=== PATIENT | female | born 1975 | race Caucasian/White ===

== ENCOUNTER 2017-10-06 22:38 | Inpatient (IN) | payer OTHER ==
[~2017-10-06] VITALS: Ht 157.5 cm; Wt 78.1 kg
[2017-10-07 00:50] VITALS: Ht 157.5 cm; Wt 78.1 kg
[2017-10-07] MEDS ORDERED: TACR5CAP PO (02:14)
[2017-10-07] MEDS ORDERED: CHOL100062 PO (02:14)
[2017-10-07] MEDS ORDERED: CALC0.5C4 PO (02:14)
[2017-10-07] MEDS ORDERED: PRED5TAB PO (02:14)
[2017-10-07] MEDS ORDERED: ACET325T33 PO (02:14)
[2017-10-07] MEDS ORDERED: NIFE60TA7 PO (02:14)
[2017-10-07 02:29] VITALS: BP 125/86; RESP 16
[2017-10-07] MEDS: SOD CHLORIDE 0.9% 1,000 ML IV SCH (02:50)
[2017-10-07] MEDS: morphine 2 MG INJ IV PRN ×2 (04:33→09:05)
[2017-10-07 05:57] LABS: ABNORMAL IP MESSAGE 1; EOSINOPHILS % 0.1 % (0.0-7.0); HEMATOCRIT 28.7 % (37.0-47.0); HEMOGLOBIN 9.8 g/dl (12.0-16.0); LYMPHOCYTES # 0.6 10^3/ul (0.8-2.9); LYMPHOCYTES % 6.9 % (15.0-51.0); MEAN CORPUSCULAR HEMOGLOBIN 31.1 pg (29.0-33.0); MEAN CORPUSCULAR HGB CONC 34.1 g/dl (32.0-37.0); MEAN CORPUSCULAR VOLUME 91.1 fl (82.0-101.0); MEAN PLATELET VOLUME 10.6 fl (7.4-10.4); MONOCYTES % 0.4 % (0.0-11.0); NEUTROPHIL # 7.7 10^3/ul (1.6-7.5); PLATELET COUNT 210 10^3/UL (140-415); RED BLOOD COUNT 3.15 10^6/ul (4.20-5.40); RED CELL DISTRIBUTION WIDTH 12.9 % (11.5-14.5); WHITE BLOOD COUNT 8.4 10^3/ul (4.8-10.8)
[2017-10-07] MEDS ORDERED: ACETAMINOPHEN 325 MG TAB PO PRN ×3 (06:00→11:00)
[2017-10-07 06:24] LABS: CALCIUM 9.5 mg/dl (8.4-10.2); CREATININE 3.14 mg/dl (0.44-1.00); POTASSIUM 4.1 mmol/L (3.5-5.1)
[2017-10-07 06:34] LABS: POSITIVE DIFF @See below
[2017-10-07] MEDS: LEVOTHYROXINE 137 MCG TAB PO SCH (07:04)
[2017-10-07 07:59] VITALS: BP 140/92; RESP 18
[2017-10-07] MEDS: METOPROLOL 100 MG TAB PO SCH ×2 (08:00→21:42)
[2017-10-07] MEDS: NIFEdipine (XL) 60 MG TAB PO SCH (09:04)
[2017-10-07] MEDS: TACROLIMUS 1 MG CAP PO SCH ×2 (09:05→21:52)
[2017-10-07] MEDS: predniSONE 5 MG TAB PO SCH (09:05)
[2017-10-07] MEDS ORDERED: NACL 0.9% 3 ML SYG IV SCH (11:00)
[2017-10-07] MEDS ORDERED: MAGNESIUM HYDROXIDE 30ML CUP PO PRN (11:00)
[2017-10-07] MEDS ORDERED: DOCUSATE SODIUM 100 MG CAP PO PRN (11:00)
[2017-10-07] MEDS ORDERED: ONDANSETRON 4 MG INJ IV PRN (11:00)
[2017-10-07] MEDS ORDERED: BISACODYL (EC) 5 MG TAB PO PRN (11:00)
--- NOTE | 2017-10-07 11:50 | RADRPT ---
PROCEDURE: Renal US. CLINICAL INDICATION: History of renal transplant. TECHNIQUE: Multiple sonographic images of the transplant kidney in the right iliac fossa were obta ined. The images were reviewed on a PACS workstation. COMPARISON: No prior studies are available for comparison. FINDINGS: The right iliac fossa transplant kidney measures 8.2 x 5.7 x 6.8 cm. There is no renal mass. There is no hydronephrosis. There is no renal calculus. Renal parenchymal thickness and echogenicity is normal. The renal transplant perirenal region is normal with no fluid collection or mass. IMPRESSION: 1. Normal ultrasound of the right iliac fossa renal transplant. RPTAT: QQ .Manny Logan MD, MD Date Time Electronically viewed and signed by .Manny Logan MD, on 10/07/2017 11:50 .R/
[2017-10-07] MEDS: CHOLECALCIFEROL 1,000 UNIT TAB PO SCH (12:16)
[2017-10-07] MEDS: FERROUS SULFATE (EC) 325 MG TAB PO SCH ×2 (12:16→21:43)
[2017-10-07] MEDS: CALCITRIOL 0.25 MCG CAP PO SCH ×2 (12:16→21:43)
[2017-10-07] MEDS: CITRIC ACID/SODIUM CITRATE 15 ML CUP PO SCH ×2 (12:17→22:20)
[2017-10-07 13:46] VITALS: BP 138/100; RESP 18
--- NOTE | 2017-10-07 16:58 | RADRPT ---
PROCEDURE: Chest x-ray CLINICAL INDICATION: Shortness of breath TECHNIQUE: Chest 2 views COMPARISON: None FINDINGS: The heart is normal in size. The pulmonary vessels are normal in caliber. The lungs are clear. Th e costophrenic angles are sharp. The visualized bony thorax is unremarkable. IMPRESSION: No acute cardiopulmonary disease. RPTAT: HH .Daquan Galaviz MD, Date Time Electronically viewed and signed by .Daquan Galaviz MD, MD on 10/07/2017 16:58 .W/
[2017-10-07] MEDS: HYDROmorphONE 1 MG/ML SYG IV PRN ×2 (17:03→21:39)
--- NOTE | 2017-10-07 18:03 | QN ---
Documentation Comment [id number] DAVID NUÑEZ MD Oct 07, 2017 18:03
--- NOTE | 2017-10-07 20:22 | HP ---
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 The patient recently had a in the family and went to [facility] and was sick there. Denies any dysuria, hematuria, but she was not feeling good and came back and went to [facility]. Since patient is in this hospital, patient was transferred here. The patient's baseline creatinine running in the range of 3. The patient had ultrasound done here shows right iliac fossa transplant kidney 8.2 x 4.7 x 6.8 cm. The patient has a chest x-ray also ordered that shows no active cardiopulmonary disease. The patient is being admitted for further management complaining of abdominal pain, denies any diarrhea, hematemesis, melena. Complaining of weakness, nausea, tiredness. PAST MEDICAL HISTORY: Positive for kidney transplant more than 20 years ago. The patient has a history of hypertension. The patient has history of anemia. ALLERGY HISTORY: VANCOMYCIN. SOCIAL HISTORY: Negative. FAMILY HISTORY: Noncontributory. MEDICATION HISTORY: The patient is on at home: 1. Tylenol 2. Calcitriol. 3. Vitamin D3. 4. Nifedipine. 5. Prednisone. 6. Prograf. REVIEW OF SYSTEMS: HEENT: Unremarkable. RESPIRATORY: Unremarkable except short of breath. CARDIOVASCULAR: No chest pain, palpitation. ABDOMEN: Nausea, abdominal pain. No diarrhea, hematemesis, melena. EXTREMITIES: Unremarkable. CENTRAL NERVOUS SYSTEM: Unremarkable. PHYSICAL EXAMINATION: GENERAL: The patient is awake and alert. VITAL SIGNS: Pulse 94, blood pressure 130/100. HEAD: Atraumatic, normocephalic. Pupils equal, reactive to light. NECK: Supple. There is no JVD. LUNGS: Clear. CARDIOVASCULAR: S1, S2 are normal. ABDOMEN: Soft, nontender. Bowel sounds present. No palpable mass. Lower quadrant has transplant kidney. EXTREMITIES: No cyanosis, clubbing. Trace edema. CENTRAL NERVOUS SYSTEM: The patient is awake, alert, no focal deficit. LABORATORY DATA: As mentioned above. IMPRESSION: 1. The patient has worsening chronic kidney disease. 2. Metabolic acidosis. 3. Anemia. 4. Hypertension. 5. Hyperglycemia. PLAN: To obtain a urine creatinine and urine protein creatinine ratio, urine sodium, gentle IV fluid PPI, continue home medication. Orders were done. Dictated By: DAVID BETH/LUIS M Conf#: [id number] DID#: [id number] MTDD
[2017-10-07] MEDS ORDERED: CALCITRIOL 0.25 MCG CAP PO SCH (21:00)
[2017-10-07 21:03] VITALS: BP 128/93; RESP 18
--- NOTE | 2017-10-07 21:33 | CONS ---
DATE OF ADMISSION: 10/07/2017 DATE OF CONSULTATION: HISTORY OF PRESENT ILLNESS: A 42-year-old female with a renal transplant, comes to the hospital com plaining of epigastric pain. She is also nauseous and gets heartburn. No GI bleeding, no chest cecil n, no shortness of breath, no or ROLLWAY MAN problem. The patient was evaluated in the emergency room at [facility] and subsequently for insurance purpose transferred to this facility. There, th e blood tests were done. The liver function was within normal limits. Hematocrit was 33. Creatinin e was 3.39. Otherwise, BMP was grossly within normal limits. WBC was normal. The patient had a re nal ultrasound which was negative. I do not have the rest of the report available which is all sket nadia. ALLERGIES: VANCOMYCIN. PHYSICAL EXAMINATION: VITALS: Stable. GENERAL: The patient is alert, awake, not in distress. HEENT: Unremarkable. CARDIOVASCULAR: No murmur, gallop or click. LUNGS: Clear. ABDOMEN: Soft. Tenderness in the epigastric area. Bowel sounds good. No mass upper abdomen. EXTREMITIES: No edema. CENTRAL NERVOUS SYSTEM: Grossly within normal limits. MEDICATIONS: All of the patient's medications reviewed, including immunosuppressive medications. S he is on: 1. Prednisone. 2. Tacrolimus. IMPRESSION: 1. Accelerated hypertension. 2. Status post renal transplant, on immunosuppressive medication. 3. Anemia. 4. Renal failure. 5. Epigastric pain for the last 4 to 5 weeks associated with nausea. PLAN: At this point, continue present medications. Control or optimize the blood pressure. Will p roceed with EGD. If the patient had no abdominal ultrasound done, then will order one to make sure she does not have a gallstone. Discussed with the patient and has agreed. Dictated By: SEDRICK ANN/LUIS M Conf#: [id number] DID#: [id number] CC: DAVID NUÑEZ MD;*EndCC*
[2017-10-08] VITALS (13 sets, daily range): BP systolic 82–144; BP diastolic 58–97; PULSE 78–88; RESP 14–26
[2017-10-08] MEDS: SOD CHLORIDE 0.9% 1,000 ML IV SCH ×2 (02:00→05:59)
[2017-10-08] MEDS: LEVOTHYROXINE 137 MCG TAB PO SCH (04:37)
[2017-10-08] MEDS ORDERED: PANTOPRAZOLE 40 MG INJ ONE (04:39)
[2017-10-08] MEDS: PANTOPRAZOLE 40 MG INJ IV SCH (05:09)
[2017-10-08 06:42] LABS: ALBUMIN 2.9 g/dl (3.3-4.9); ALBUMIN/GLOBULIN RATIO 0.85; BILIRUBIN,INDIRECT 0.1 mg/dl (0-1.1); BILIRUBIN,TOTAL 0.1 mg/dl (0.2-1.3); CALCIUM 9.2 mg/dl (8.4-10.2); CREATININE 2.92 mg/dl (0.44-1.00); TOTAL PROTEIN 6.3 g/dl (6.1-8.1)
--- NOTE | 2017-10-08 07:24 | RADRPT ---
PROCEDURE: US Abdomen. CLINICAL INDICATION: Abdominal pain TECHNIQUE: Multiple real-time images were acquired of the patient's abdomen and retroperitoneum ut ilizing a high resolution transducer. COMPARISON: None FINDINGS: Visualized portions of the pancreatic head and proximal body are unremarkable. The liver is normal in size and contour without evidence of intrapelvic biliary dilatation. There is a 4 mm nonshadowing echogenic focus in the gallbladder that could represent a polyp. There is no evidence of cholelithiasis, pericholecystic fluid or gallbladder wall thickening. The technol ogist reports a negative sonographic Martínez's sign. The common bile duct measures 4.7 mm in morelia l dimension. No free fluid is identified. The transplant kidney is seen on the right. This transplant kidney measures 9.2 cm in length. There is no evidence of hydronephrosis. The proximal aorta measures 1.9 cm in transverse dimension. The mid aorta measures 1.3 cm in transv erse dimension. The spleen is normal in size measuring 8.8 cm. IMPRESSION: 1. 4 mm nonshadowing echogenic focus in the gallbladder that could represent a polyp. The gallbladd er is otherwise sonographically unremarkable. 2. Transplanted kidney seen on the right measuring 9.2 cm in length. There is no evidence of hydron ephrosis. RPTAT:AAJJ Physician Tylor Date Time Electronically viewed and signed by Physician Tylor on 10/08/2017 07:23 /
[2017-10-08 07:55] LABS: BASOPHILS % 0.1 % (0.0-2.0); EOSINOPHILS # 0.1 10^3/ul (0.0-0.5); EOSINOPHILS % 0.4 % (0.0-7.0); HEMATOCRIT 27.3 % (37.0-47.0); HEMOGLOBIN 9.3 g/dl (12.0-16.0); LYMPHOCYTES # 1.4 10^3/ul (0.8-2.9); LYMPHOCYTES % 10.2 % (15.0-51.0); MEAN CORPUSCULAR HEMOGLOBIN 31.4 pg (29.0-33.0); MEAN CORPUSCULAR HGB CONC 34.1 g/dl (32.0-37.0); MEAN CORPUSCULAR VOLUME 92.2 fl (82.0-101.0); MEAN PLATELET VOLUME 10.6 fl (7.4-10.4); MONOCYTE # 0.9 10^3/ul (0.3-0.9); MONOCYTES % 6.7 % (0.0-11.0); NEUTROPHIL # 11.2 10^3/ul (1.6-7.5); NEUTROPHILS % 82.2 % (39.0-77.0); PLATELET COUNT 199 10^3/UL (140-415); RED BLOOD COUNT 2.96 10^6/ul (4.20-5.40); WHITE BLOOD COUNT 13.6 10^3/ul (4.8-10.8)
[2017-10-08] MEDS: METOPROLOL 100 MG TAB PO SCH ×2 (08:00→22:14)
[2017-10-08] MEDS ORDERED: predniSONE 5 MG TAB PO SCH (09:00)
[2017-10-08] MEDS ORDERED: INFLUENZA VIRUS VACCINE 0.5 ML (DISPENSING) IM* ONE (09:00)
[2017-10-08] MEDS ORDERED: NIFEdipine (XL) 60 MG TAB PO SCH (09:00)
[2017-10-08] MEDS ORDERED: CHOLECALCIFEROL 1,000 UNIT TAB PO SCH (09:00)
[2017-10-08] MEDS: CITRIC ACID/SODIUM CITRATE 15 ML CUP PO SCH ×3 (09:00→22:33)
[2017-10-08] MEDS ORDERED: TACROLIMUS 7 MG PO SCH (09:00)
[2017-10-08] MEDS ORDERED: PROPOFOL 20 ML ONE (12:25)
[2017-10-08] MEDS ORDERED: LIDOCAINE 2% (SDV) 5 ML INJ ONE (12:25)
--- NOTE | 2017-10-08 12:38 | OPPN ---
Date/Time of Note Date/Time of Note DATE: 10/08/17 TIME: 12:37 Proc Note GI Procedure Date 10/08/17 Indication: diagnostic Pre-procedure Diagnosis Epigastric pain Post-procedure Diagnosis 1. Gastroparesis 2. Gastritis Procedure Performed: Endoscopy Surgeon see signature line Industrial Maintenance Mechanic none Anesthesia Type: MAC Tourniquet Time none EBL none Transfusion required none Biopsy 1: Gastric Grafts/Implants none Tubes/Drains none Complication(s) none Disposition: PACU Procedure Description Dictated SEDRICK GRUBBS MD Oct 08, 2017 12:38
--- NOTE | 2017-10-08 13:07 | GILP ---
DATE OF PROCEDURE: PROCEDURE PERFORMED: EGD with biopsy. INDICATION: A 42-year-old female undergoing this procedure for persistent epigastric pain for the l ast 4 to 5 weeks associated with nausea. The purpose is to evaluate upper GI tract to rule out pept ic ulcer disease. INFORMED CONSENT: The risk of the procedure, related and unrelated complications, anesthetic risks, alternatives discussed and informed consent was obtained. DESCRIPTION OF PROCEDURE: The patient was brought to the GI lab, sedated by anesthesiologist. Afte r obtaining sedation, scope was passed with much ease into esophagus which was grossly within normal limits. No varicose vein identified. Z-line was at 35 cm. Stomach mucosa revealed gastroparesis with undigested food particle in the fundal area. Though the gastritis more so in the antrum, 3 bio psies obtained to rule out H. pylori infection. Duodenum, first and second part was within normal l imits. Retroversion done. Again gastroparesis confirmed. Scope was straightened out and removed w ith good patient tolerance. IMPRESSION 1. Gastroparesis. 2. Gastritis. 3. Normal esophagus. 4. No varicose vein identified. 5. Normal duodenum. PLAN: Start the patient on Reglan. Continue PPI pending H. pylori test results. Dictated By: SEDRICK GRUBBS MD PJ/NTS Conf#: [id number] DID#: [id number] CC: DAVID NUÑEZ MD;*End*
--- NOTE | 2017-10-08 13:56 | PN ---
Date/Time of Note Date/Time of Note DATE: 10/08/17 TIME: 13:54 Assessment/Plan VTE Prophylaxis VTE Prophylaxis Intervention: ambulation Lines/Catheters IV [facility]from [facility]): Peripheral IV Urinary Cath still in place: No Assessment/Plan Chief Complaint/Hosp Course 1. chronic kidney disease.Transplanted kidney on the right . 2. Metabolic acidosis. 3. Anemia. 4. Hypertension. 5. Hyperglycemia. 6. S/p EGD 7. gastroparesis 8. SIRS Problems: Assessment/Plan 1. continue IV fluids 2. Continue medications 3. UA is collected 4. dr weir for SIRS Subjective 24 Hr Interval Summary Constitutional: improved, no complaints Gastrointestinal: pain Musculoskeletal: no complaints Skin: no complaints Neurologic: no complaints Exam/Review of Systems Vital Signs Vitals Vital Signs Date Time Temp Pulse Resp B/P Pulse Ox O2 Delivery O2 Flow Rate FiO2 10/08/17 12:50 99.1 88 14 126/88 100 Mask 10.0 Intake and Output 10/07/17 10/07/17 10/08/17 15:00 23:00 07:00 Intake Total 500 ml 1360 ml Output Total 1000 ml Balance -500 ml 1360 ml Exam Constitutional: alert, oriented Respiratory: clear to auscultation Cardiovascular: regular rate and rhythm Gastrointestinal: soft Results Result Diagram: 10/08/17 0505 10/08/17 0505 Results 24 hrs Laboratory Tests Test 10/08/17 05:05 White Blood Count 13.6 #H Red Blood Count 2.96 L Hemoglobin 9.3 L Hematocrit 27.3 L Mean Corpuscular Volume 92.2 Mean Corpuscular Hemoglobin 31.4 Mean Corpuscular Hemoglobin Concent 34.1 Red Cell Distribution Width 13.0 Platelet Count 199 Mean Platelet Volume 10.6 H Neutrophils % 82.2 H Lymphocytes % 10.2 L Monocytes % 6.7 Eosinophils % 0.4 Basophils % 0.1 Nucleated Red Blood Cells % 0.0 Neutrophils # 11.2 H Lymphocytes # 1.4 Monocytes # 0.9 Eosinophils # 0.1 Basophils # 0.0 Nucleated Red Blood Cells # 0.0 Sodium Level 141 Potassium Level 4.0 Chloride Level 111 H Carbon Dioxide Level 22 Anion Gap 12 Blood Urea Nitrogen 43 H Creatinine 2.92 H Glucose Level 102 # Hemoglobin A1c 5.8 Calcium Level 9.2 Phosphorus Level 4.2 Total Bilirubin 0.1 L Direct Bilirubin 0.00 Indirect Bilirubin 0.1 Aspartate Amino Transf (AST/SGOT) 17 Alanine Aminotransferase (ALT/SGPT) 35 Alkaline Phosphatase 39 L Total Protein 6.3 Albumin 2.9 L Globulin 3.40 H Albumin/Globulin Ratio 0.85 Medications Medications Current Medications Sodium Chloride (NS) 1,000 ml @ 40 mls/hr Q24H IV Last administered on 05:59; Admin Dose 40 MLS/HR; Start 10/07/17 at 02:00 Tacrolimus (Prograf) 6 mg DAILY@2229 PO Last administered on 10/07/17 21:52; Admin Dose 6 MG; Start 10/07/17 at 22:30 Ferrous Sulfate (Ferrous Sulfate (Ec)) 325 mg BID@ PO Last administered on 10/07/17 21:43; Admin Dose 325 MG; Start 10/07/17 at 12:00 Hydralazine HCl (Apresoline) 10 mg TID@ PO Last administered on 21:45; Admin Dose 10 MG; Start 10/07/17 at 08:00 Levothyroxine Sodium (Synthroid) 137 mcg DAILY@07 PO Last administered on 07:04; Admin Dose 137 MCG; Start 10/07/17 at 07:00 Metoprolol Tartrate (Lopressor) 100 mg BID@ PO Last administered on 10/07 21:42; Admin Dose 100 MG; Start 10/07/17 at 08:00 Acetaminophen (Tylenol Tab) 650 mg Q4H PRN PO PAIN AND OR ELEVATED TEMP; Start 10/07/17 at 06:00 Calcitriol (Rocaltrol) 0.5 mcg BID@ PO Last administered on 10/07/17 21 :43; Admin Dose 0.5 MCG; Start 10/07/17 at 12:00 Cholecalciferol (Vitamin D) 1,000 unit DAILY@12 PO Last administered on 12:16; Admin Dose 1,000 UNIT; Start 10/07/17 at 12:00 Nifedipine (Procardia Xl) 60 mg DAILY@08 PO Last administered on 10/07/17 09: 04; Admin Dose 60 MG; Start 10/07/17 at 08:00 Prednisone (Prednisone) 5 mg DAILY@08 PO Last administered on 10/07/17 09:05; Admin Dose 5 MG; Start 10/07/17 at 08:00 Tacrolimus (Prograf) 7 mg DAILY@08 PO Last administered on 10/07/17 09:05; Admin Dose 7 MG; Start 10/07/17 at 08:00 Acetaminophen (Tylenol Tab) 650 mg Q4H PRN PO MILD PAIN LEVEL 1-3; Start at 11:00 Ondansetron HCl (Zofran Inj) 4 mg Q6H PRN IV NAUSEA AND/OR VOMITING; Start 10/07/17 at 11:00 Acetaminophen (Tylenol Tab) 650 mg Q6H PRN PO PAIN LEVEL 1-3 OR FEVER; Start 10/07/17 at 11:00 Docusate Sodium (Colace) 100 mg Q12H PRN PO CONSTIPATION Last administered on 10/07/17 21:40; Admin Dose 100 MG; Start 10/07/17 at 11:00 Magnesium Hydroxide (Milk Of Mag) 30 ml DAILY PRN PO CONSTIPATION; Start at 11:00 Bisacodyl (Dulcolax) 5 mg DAILY PRN PO CONSTIPATION; Start 10/07/17 at 11:00 Citric Acid/ Sodium Citrate (Bicitra) 30 ml TID PO Last administered on 22:20; Admin Dose 30 ML; Start 10/07/17 at 13:00 Hydromorphone HCl (Dilaudid) 1 mg Q4H PRN IV PAIN LEVEL 6-10 Last administered on 10/07/17 21:39; Admin Dose 1 MG; Start 10/07/17 at 15:00 Pantoprazole (Protonix Iv) 40 mg DAILY@06 IV Last administered on 10/08/17 05: 09; Admin Dose 40 MG; Start 10/08/17 at 06:00 Metoclopramide HCl (Reglan) 5 mg Q6 IV ; Start 10/08/17 at 13:00 KIMI MORALES Oct 08, 2017 13:56
[2017-10-08] MEDS: NIFEdipine (XL) 60 MG TAB PO SCH (14:04)
[2017-10-08] MEDS: predniSONE 5 MG TAB PO SCH (14:05)
[2017-10-08] MEDS: CHOLECALCIFEROL 1,000 UNIT TAB PO SCH (14:05)
[2017-10-08] MEDS: FERROUS SULFATE (EC) 325 MG TAB PO SCH ×2 (14:05→22:13)
[2017-10-08] MEDS: CALCITRIOL 0.25 MCG CAP PO SCH ×2 (14:05→22:14)
[2017-10-08] MEDS: TACROLIMUS 1 MG CAP PO SCH ×2 (14:06→22:13)
[2017-10-08] MEDS: HYDROmorphONE 1 MG/ML SYG IV PRN ×2 (14:07→21:07)
[2017-10-08] MEDS: METOCLOPRAMIDE 10 MG INJ IV SCH ×2 (14:41→18:11)
[2017-10-08 17:46] LABS: PTH CALCIUM 9.5 mg/dL (8.6-10.2)
[2017-10-09] MEDS: METOCLOPRAMIDE 10 MG INJ IV SCH ×4 (00:54→17:29)
[2017-10-09 02:00] VITALS: BP 123/81; RESP 20
[2017-10-09] MEDS: PANTOPRAZOLE 40 MG INJ IV SCH (05:38)
[2017-10-09 06:30] LABS: BASOPHILS % 0.1 % (0.0-2.0); EOSINOPHILS # 0.2 10^3/ul (0.0-0.5); EOSINOPHILS % 1.8 % (0.0-7.0); HEMATOCRIT 30.7 % (37.0-47.0); HEMOGLOBIN 10.3 g/dl (12.0-16.0); LYMPHOCYTES # 1.6 10^3/ul (0.8-2.9); LYMPHOCYTES % 15.4 % (15.0-51.0); MEAN CORPUSCULAR HGB CONC 33.6 g/dl (32.0-37.0); MEAN CORPUSCULAR VOLUME 92.5 fl (82.0-101.0); MEAN PLATELET VOLUME 10.3 fl (7.4-10.4); MONOCYTE # 0.6 10^3/ul (0.3-0.9); MONOCYTES % 6.3 % (0.0-11.0); NEUTROPHIL # 7.7 10^3/ul (1.6-7.5); PLATELET COUNT 205 10^3/UL (140-415); RED BLOOD COUNT 3.32 10^6/ul (4.20-5.40); RED CELL DISTRIBUTION WIDTH 12.8 % (11.5-14.5); WHITE BLOOD COUNT 10.1 10^3/ul (4.8-10.8)
[2017-10-09] MEDS: LEVOTHYROXINE 137 MCG TAB PO SCH (06:38)
[2017-10-09 07:00] LABS: CALCIUM 9.1 mg/dl (8.4-10.2); CREATININE 2.64 mg/dl (0.44-1.00)
[2017-10-09 07:47] VITALS: BP 108/70; RESP 18
[2017-10-09 08:09] LABS: PROTEIN/CREAT RATIO 0.52 RATIO
[2017-10-09] MEDS: CITRIC ACID/SODIUM CITRATE 15 ML CUP PO SCH ×2 (08:24→12:31)
[2017-10-09] MEDS: NIFEdipine (XL) 60 MG TAB PO SCH (08:27)
[2017-10-09] MEDS: METOPROLOL 100 MG TAB PO SCH (08:27)
[2017-10-09] MEDS: predniSONE 5 MG TAB PO SCH (08:28)
[2017-10-09] MEDS: TACROLIMUS 1 MG CAP PO SCH (08:29)
[2017-10-09] MEDS: CALCITRIOL 0.25 MCG CAP PO SCH (12:30)
[2017-10-09] MEDS: CHOLECALCIFEROL 1,000 UNIT TAB PO SCH (12:30)
[2017-10-09] MEDS: FERROUS SULFATE (EC) 325 MG TAB PO SCH (12:30)
--- NOTE | 2017-10-09 13:06 | PN ---
Date/Time of Note Date/Time of Note DATE: 10/09/17 TIME: 13:05 Assessment/Plan VTE Prophylaxis VTE Prophylaxis Intervention: ambulation Lines/Catheters [facility] Peripheral IV Urinary Cath still in place: No Assessment/Plan Chief Complaint/Hosp Course 1. chronic kidney disease.Transplanted kidney on the right . 2. Metabolic acidosis. 3. Anemia. 4. Hypertension. 5. Hyperglycemia. 6. S/p EGD 7. gastroparesis 8. SIRS better Problems: Assessment/Plan 1. Possible d/c if ok with dr Buckner Subjective 24 Hr Interval Summary Constitutional: improved, no complaints Exam/Review of Systems Vital Signs Vitals Vital Signs Date Time Temp Pulse Resp B/P Pulse Ox O2 Delivery O2 Flow Rate FiO2 10/09/17 07:47 98.8 89 18 108/70 95 10/08/17 13:46 Room Air 10/08/17 12:59 10.0 Intake and Output 10/08/17 10/08/17 10/09/17 15:00 23:00 07:00 Intake Total 860 ml 880 ml Balance 860 ml 880 ml Exam Constitutional: alert, oriented Neck: supple Respiratory: clear to auscultation Genitourinary - Female: CVA tenderness (neg) Musculoskeletal: nl extremities to inspection Results Result Diagram: 10/09/17 0538 10/09/17 0538 Results 24 hrs Laboratory Tests Test 10/08/17 23:40 10/09/17 05:38 Urine Random Creatinine 62.83 Urine Random Sodium 103 H Urine Protein/Creatinine Ratio 0.52 Urine Total Protein 33.0 H Urine Test NEGATIVE White Blood Count 10.1 # Red Blood Count 3.32 L Hemoglobin 10.3 L Hematocrit 30.7 L Mean Corpuscular Volume 92.5 Mean Corpuscular Hemoglobin 31.0 Mean Corpuscular Hemoglobin Concent 33.6 Red Cell Distribution Width 12.8 Platelet Count 205 Mean Platelet Volume 10.3 Neutrophils % 76.0 Lymphocytes % 15.4 Monocytes % 6.3 Eosinophils % 1.8 Basophils % 0.1 Nucleated Red Blood Cells % 0.0 Neutrophils # 7.7 H Lymphocytes # 1.6 Monocytes # 0.6 Eosinophils # 0.2 Basophils # 0.0 Nucleated Red Blood Cells # 0.0 Sodium Level 140 Potassium Level 4.0 Chloride Level 109 Carbon Dioxide Level 24 Anion Gap 11 Blood Urea Nitrogen 38 H Creatinine 2.64 H Glucose Level 94 Calcium Level 9.1 Medications Medications Current Medications Sodium Chloride (NS) 1,000 ml @ 40 mls/hr Q24H IV Last administered on 05:59; Admin Dose 40 MLS/HR; Start 10/07/17 at 02:00 Tacrolimus (Prograf) 6 mg DAILY@0 PO Last administered on 10/08/17 22:13; Admin Dose 6 MG; Start 10/07/17 at 22:30 Ferrous Sulfate (Ferrous Sulfate (Ec)) 325 mg BID@ PO Last administered on 10/09/17 12:30; Admin Dose 325 MG; Start 10/07/17 at 12:00 Hydralazine HCl (Apresoline) 10 mg TID@ PO Last administered on 12:31; Admin Dose 10 MG; Start 10/07/17 at 08:00 Levothyroxine Sodium (Synthroid) 137 mcg DAILY@ PO Last administered on 06:38; Admin Dose 137 MCG; Start 10/07/17 at 07:00 Metoprolol Tartrate (Lopressor) 100 mg BID@ PO Last administered on 10/09 08:27; Admin Dose 100 MG; Start 10/07/17 at 08:00 Calcitriol (Rocaltrol) 0.5 mcg BID@ PO Last administered on 10/09/17 12 :30; Admin Dose 0.5 MCG; Start 10/07/17 at 12:00 Cholecalciferol (Vitamin D) 1,000 unit DAILY@12 PO Last administered on 12:30; Admin Dose 1,000 UNIT; Start 10/07/17 at 12:00 Nifedipine (Procardia Xl) 60 mg DAILY@08 PO Last administered on 10/09/17 08: 27; Admin Dose 60 MG; Start 10/07/17 at 08:00 Prednisone (Prednisone) 5 mg DAILY@08 PO Last administered on 10/09/17 08:28; Admin Dose 5 MG; Start 10/07/17 at 08:00 Tacrolimus (Prograf) 7 mg DAILY@08 PO Last administered on 10/09/17 08:29; Admin Dose 7 MG; Start 10/07/17 at 08:00 Ondansetron HCl (Zofran Inj) 4 mg Q6H PRN IV NAUSEA AND/OR VOMITING; Start 10/07/17 at 11:00 Acetaminophen (Tylenol Tab) 650 mg Q6H PRN PO PAIN LEVEL 1-3 OR FEVER; Start 10/07/17 at 11:00 Docusate Sodium (Colace) 100 mg Q12H PRN PO CONSTIPATION Last administered on 10/07/17 21:40; Admin Dose 100 MG; Start 10/07/17 at 11:00 Magnesium Hydroxide (Milk Of Mag) 30 ml DAILY PRN PO CONSTIPATION; Start at 11:00 Bisacodyl (Dulcolax) 5 mg DAILY PRN PO CONSTIPATION Last administered on 14:05; Admin Dose 5 MG; Start 10/07/17 at 11:00 Citric Acid/ Sodium Citrate (Bicitra) 30 ml TID PO Last administered on 12:31; Admin Dose 30 ML; Start 10/07/17 at 13:00 Hydromorphone HCl (Dilaudid) 1 mg Q4H PRN IV PAIN LEVEL 6-10 Last administered on 10/08/17 21:07; Admin Dose 1 MG; Start 10/07/17 at 15:00 Pantoprazole (Protonix Iv) 40 mg DAILY@06 IV Last administered on 10/09/17 05: 38; Admin Dose 40 MG; Start 10/08/17 at 06:00 Metoclopramide HCl (Reglan) 5 mg Q6 IV Last administered on 10/09/17 12:30; Admin Dose 5 MG; Start 10/08/17 at 13:00 KIMI MORALES Oct 09, 2017 13:06
--- NOTE | 2017-10-09 13:46 | PDOCDIS ---
Discharge Instructions CONDITION Patient Condition: Stable HOME CARE INSTRUCTIONS: Special Diet: low fat low cholesterol ACTIVITY: Activity Restrictions: Slowly Increase Activity Bathing Restrictions: Shower FOLLOW UP/APPOINTMENTS Follow-up Plan PCP 1 week KIMI MORALES Oct 09, 2017 13:46
[2017-10-09] MEDS ORDERED: METO-407 PO (13:48)
[2017-10-09] MEDS ORDERED: LEVO137T24 PO (13:48)
[2017-10-09] MEDS ORDERED: METO5TAB58 PO (13:49)
[2017-10-09 14:39] VITALS: BP 109/74; RESP 18
[2017-10-09] MEDS ORDERED: PANT40TA3 PO (14:48)
--- NOTE | 2017-10-09 15:36 | CONS ---
Date/Time of Note Date/Time of Note DATE: 10/09/17 TIME: 15:36 Assessment/Plan Assessment/Plan Additional Assessment/Plan IMPRESSION: 1. Accelerated hypertension. 2. Status post renal transplant, on immunosuppressive medication. 3. Anemia. 4. Renal failure. 5. Epigastric pain for the last 4 to 5 weeks associated with nausea. 6. Gastroparesis Plan Continue Reglan for 2 weeks PPI for 1 month Consultation Date/Type/Reason Admit Date/Time Oct 07, 2017 at 00:47 Initial Consult Date 24 HR Interval Summary Constitutional: improved Exam/Review of Systems Vital Signs Vitals Vital Signs Date Time Temp Pulse Resp B/P Pulse Ox O2 Delivery O2 Flow Rate FiO2 10/09/17 14:39 98.4 84 18 109/74 95 10/08/17 13:46 Room Air 10/08/17 12:59 10.0 Intake and Output 10/08/17 10/08/17 10/09/17 15:00 23:00 07:00 Intake Total 860 ml 880 ml Balance 860 ml 880 ml Exam Constitutional: alert, oriented, well developed Psych: nl mood/affect, no complaints Head: atraumatic, normocephalic Eyes: EOMI, PERRL, nl conjunctiva, nl lids, nl sclera ENMT: nl external ears & nose, nl lips & teeth, nl nasal mucosa & septum Neck: non-tender, supple Respiratory: clear to auscultation, normal air movement Cardiovascular: nl pulses, regular rate and rhythm Gastrointestinal: nl liver, spleen, non-tender, soft Musculoskeletal: nl extremities to inspection, nl gait and stance Extremities: normal pulses Neurological: IGNITION EXPERT II-XII intact, nl mental status, nl speech, nl strength Skin: nl turgor, No rash or lesions Lymph: nl lymph nodes Results Result Diagram: 10/09/17 0538 10/09/17 0538 Results 24 hrs Laboratory Tests Test 10/08/17 23:40 10/09/17 05:38 Urine Random Creatinine 62.83 Urine Random Sodium 103 H Urine Protein/Creatinine Ratio 0.52 Urine Total Protein 33.0 H Urine Test NEGATIVE White Blood Count 10.1 # Red Blood Count 3.32 L Hemoglobin 10.3 L Hematocrit 30.7 L Mean Corpuscular Volume 92.5 Mean Corpuscular Hemoglobin 31.0 Mean Corpuscular Hemoglobin Concent 33.6 Red Cell Distribution Width 12.8 Platelet Count 205 Mean Platelet Volume 10.3 Neutrophils % 76.0 Lymphocytes % 15.4 Monocytes % 6.3 Eosinophils % 1.8 Basophils % 0.1 Nucleated Red Blood Cells % 0.0 Neutrophils # 7.7 H Lymphocytes # 1.6 Monocytes # 0.6 Eosinophils # 0.2 Basophils # 0.0 Nucleated Red Blood Cells # 0.0 Sodium Level 140 Potassium Level 4.0 Chloride Level 109 Carbon Dioxide Level 24 Anion Gap 11 Blood Urea Nitrogen 38 H Creatinine 2.64 H Glucose Level 94 Calcium Level 9.1 Medications Medications Current Medications Sodium Chloride (NS) 1,000 ml @ 40 mls/hr Q24H IV Last administered on 05:59; Admin Dose 40 MLS/HR; Start 10/07/17 at 02:00 Tacrolimus (Prograf) 6 mg DAILY@2229 PO Last administered on 10/08/17 22:13; Admin Dose 6 MG; Start 10/07/17 at 22:30 Ferrous Sulfate (Ferrous Sulfate (Ec)) 325 mg BID@ PO Last administered on 10/09/17 12:30; Admin Dose 325 MG; Start 10/07/17 at 12:00 Hydralazine HCl (Apresoline) 10 mg TID@ PO Last administered on 12:31; Admin Dose 10 MG; Start 10/07/17 at 08:00 Levothyroxine Sodium (Synthroid) 137 mcg DAILY@07 PO Last administered on 06:38; Admin Dose 137 MCG; Start 10/07/17 at 07:00 Metoprolol Tartrate (Lopressor) 100 mg BID@ PO Last administered on 10/09 08:27; Admin Dose 100 MG; Start 10/07/17 at 08:00 Calcitriol (Rocaltrol) 0.5 mcg BID@ PO Last administered on 10/09/17 12 :30; Admin Dose 0.5 MCG; Start 10/07/17 at 12:00 Cholecalciferol (Vitamin D) 1,000 unit DAILY@12 PO Last administered on 12:30; Admin Dose 1,000 UNIT; Start 10/07/17 at 12:00 Nifedipine (Procardia Xl) 60 mg DAILY@08 PO Last administered on 10/09/17 08: 27; Admin Dose 60 MG; Start 10/07/17 at 08:00 Prednisone (Prednisone) 5 mg DAILY@08 PO Last administered on 10/09/17 08:28; Admin Dose 5 MG; Start 10/07/17 at 08:00 Tacrolimus (Prograf) 7 mg DAILY@08 PO Last administered on 10/09/17 08:29; Admin Dose 7 MG; Start 10/07/17 at 08:00 Ondansetron HCl (Zofran Inj) 4 mg Q6H PRN IV NAUSEA AND/OR VOMITING; Start 10/07/17 at 11:00 Acetaminophen (Tylenol Tab) 650 mg Q6H PRN PO PAIN LEVEL 1-3 OR FEVER; Start 10/07/17 at 11:00 Docusate Sodium (Colace) 100 mg Q12H PRN PO CONSTIPATION Last administered on 10/07/17 21:40; Admin Dose 100 MG; Start 10/07/17 at 11:00 Magnesium Hydroxide (Milk Of Mag) 30 ml DAILY PRN PO CONSTIPATION; Start at 11:00 Bisacodyl (Dulcolax) 5 mg DAILY PRN PO CONSTIPATION Last administered on 14:05; Admin Dose 5 MG; Start 10/07/17 at 11:00 Citric Acid/ Sodium Citrate (Bicitra) 30 ml TID PO Last administered on 12:31; Admin Dose 30 ML; Start 10/07/17 at 13:00 Hydromorphone HCl (Dilaudid) 1 mg Q4H PRN IV PAIN LEVEL 6-10 Last administered on 10/08/17 21:07; Admin Dose 1 MG; Start 10/07/17 at 15:00 Pantoprazole (Protonix Iv) 40 mg DAILY@06 IV Last administered on 10/09/17 05: 38; Admin Dose 40 MG; Start 10/08/17 at 06:00 Metoclopramide HCl (Reglan) 5 mg Q6 IV Last administered on 10/09/17 12:30; Admin Dose 5 MG; Start 10/08/17 at 13:00 SEDRICK GRUBBS MD Oct 09, 2017 15:36
--- NOTE | 2017-10-09 16:29 | CONS ---
Date/Time of Note Date/Time of Note DATE: 10/09/17 TIME: 16:28 Assessment/Plan Assessment/Plan Chief Complaint/Hosp Course ID PROGRESS NOTE TOTAL ABX DAY CURRENT ABX=> NONE 24H INTERVAL SUMMARY = POD #1=> s/p EGD w/biopsy 10/08/17 * DC plan in process, patient was told she go home, tells me nurse told her the paperwork was not in place ? * Note reviewed PCP wrote OK to DC, and Dr. Livingston PLAN is clear: Continue Reglan for 2 weeks + PPI for 1 month * No fevers/chills/n/v/d/ GERD pain improved w/reglan + PPI * WBC normalized * s/p EGD w/Dr. Livingston w/biopsy result pending for H. Pylori EXAM GENERAL: Overweight F, A/A/O, feeling better, taking POs VSS, NAD HEENT: Unremarkable NECK: Supple, full ROM CHEST: Rise symmetrical, without dyspnea on observation ABDOMEN: Soft, NT EXTREMITIES: Warm SKIN: No diaphoresis, no rash ID ASSESSMENT: 42 yo Immunocompromised host 2/2 hx of renal tx admit with: 1. SIRS w/Tmax 99.1 + WBC elated to 13.6 => RESOLVED, likely reactive 2. Epigastric pain for the last 4 to 5 weeks associated with nausea + GERD * POD #1 -> s/p EGD w/biopsy 10/08/17 3. Gastroparesis 4. Accelerated hypertension. 5. Anemia. 6. Hyperglycemia 7. Hx of thyroid cancer -> hx of throidectomy 8. Hx of renal tx 9. Hx of [place] Palsy INVASIVES: PIV ABX ALLERGY: KNDA CURRENT ABX=>NONE ID PLAN 1. D/W Dr. Cadena - no indication for ABX. 2. Plan is for DC home to OP f/u with Dr. Livingston on Reglan x 2 weeks + Protonix x 4-weeks, f/u on H. Pylori results outpatient. * Thank you - report called to Dr. Cadena who concurs. Problems: Consultation Date/Type/Reason Admit Date/Time Oct 07, 2017 at 00:47 Initial Consult Date Exam/Review of Systems Vital Signs Vitals Vital Signs Date Time Temp Pulse Resp B/P Pulse Ox O2 Delivery O2 Flow Rate FiO2 10/09/17 14:39 98.4 84 18 109/74 95 10/08/17 13:46 Room Air 10/08/17 12:59 10.0 Intake and Output 10/08/17 10/08/17 10/09/17 15:00 23:00 07:00 Intake Total 860 ml 880 ml Balance 860 ml 880 ml Results Result Diagram: 10/09/17 0538 10/09/17 0538 Results 24 hrs Laboratory Tests Test 10/08/17 23:40 10/09/17 05:38 Urine Random Creatinine 62.83 Urine Random Sodium 103 H Urine Protein/Creatinine Ratio 0.52 Urine Total Protein 33.0 H Urine Test NEGATIVE White Blood Count 10.1 # Red Blood Count 3.32 L Hemoglobin 10.3 L Hematocrit 30.7 L Mean Corpuscular Volume 92.5 Mean Corpuscular Hemoglobin 31.0 Mean Corpuscular Hemoglobin Concent 33.6 Red Cell Distribution Width 12.8 Platelet Count 205 Mean Platelet Volume 10.3 Neutrophils % 76.0 Lymphocytes % 15.4 Monocytes % 6.3 Eosinophils % 1.8 Basophils % 0.1 Nucleated Red Blood Cells % 0.0 Neutrophils # 7.7 H Lymphocytes # 1.6 Monocytes # 0.6 Eosinophils # 0.2 Basophils # 0.0 Nucleated Red Blood Cells # 0.0 Sodium Level 140 Potassium Level 4.0 Chloride Level 109 Carbon Dioxide Level 24 Anion Gap 11 Blood Urea Nitrogen 38 H Creatinine 2.64 H Glucose Level 94 Calcium Level 9.1 Medications Medications Current Medications Sodium Chloride (NS) 1,000 ml @ 40 mls/hr Q24H IV Last administered on 05:59; Admin Dose 40 MLS/HR; Start 10/07/17 at 02:00 Tacrolimus (Prograf) 6 mg DAILY@2229 PO Last administered on 10/08/17 22:13; Admin Dose 6 MG; Start 10/07/17 at 22:30 Ferrous Sulfate (Ferrous Sulfate (Ec)) 325 mg BID@ PO Last administered on 10/09/17 12:30; Admin Dose 325 MG; Start 10/07/17 at 12:00 Hydralazine HCl (Apresoline) 10 mg TID@ PO Last administered on 12:31; Admin Dose 10 MG; Start 10/07/17 at 08:00 Levothyroxine Sodium (Synthroid) 137 mcg DAILY@07 PO Last administered on 06:38; Admin Dose 137 MCG; Start 10/07/17 at 07:00 Metoprolol Tartrate (Lopressor) 100 mg BID@ PO Last administered on 10/09 08:27; Admin Dose 100 MG; Start 10/07/17 at 08:00 Calcitriol (Rocaltrol) 0.5 mcg BID@ PO Last administered on 10/09/17 12 :30; Admin Dose 0.5 MCG; Start 10/07/17 at 12:00 Cholecalciferol (Vitamin D) 1,000 unit DAILY@12 PO Last administered on 12:30; Admin Dose 1,000 UNIT; Start 10/07/17 at 12:00 Nifedipine (Procardia Xl) 60 mg DAILY@08 PO Last administered on 10/09/17 08: 27; Admin Dose 60 MG; Start 10/07/17 at 08:00 Prednisone (Prednisone) 5 mg DAILY@08 PO Last administered on 10/09/17 08:28; Admin Dose 5 MG; Start 10/07/17 at 08:00 Tacrolimus (Prograf) 7 mg DAILY@08 PO Last administered on 10/09/17 08:29; Admin Dose 7 MG; Start 10/07/17 at 08:00 Ondansetron HCl (Zofran Inj) 4 mg Q6H PRN IV NAUSEA AND/OR VOMITING; Start 10/07/17 at 11:00 Acetaminophen (Tylenol Tab) 650 mg Q6H PRN PO PAIN LEVEL 1-3 OR FEVER; Start 10/07/17 at 11:00 Docusate Sodium (Colace) 100 mg Q12H PRN PO CONSTIPATION Last administered on 10/07/17 21:40; Admin Dose 100 MG; Start 10/07/17 at 11:00 Magnesium Hydroxide (Milk Of Mag) 30 ml DAILY PRN PO CONSTIPATION; Start at 11:00 Bisacodyl (Dulcolax) 5 mg DAILY PRN PO CONSTIPATION Last administered on 14:05; Admin Dose 5 MG; Start 10/07/17 at 11:00 Citric Acid/ Sodium Citrate (Bicitra) 30 ml TID PO Last administered on 12:31; Admin Dose 30 ML; Start 10/07/17 at 13:00 Hydromorphone HCl (Dilaudid) 1 mg Q4H PRN IV PAIN LEVEL 6-10 Last administered on 10/08/17 21:07; Admin Dose 1 MG; Start 10/07/17 at 15:00 Pantoprazole (Protonix Iv) 40 mg DAILY@06 IV Last administered on 10/09/17 05: 38; Admin Dose 40 MG; Start 10/08/17 at 06:00 Metoclopramide HCl (Reglan) 5 mg Q6 IV Last administered on 10/09/17 12:30; Admin Dose 5 MG; Start 10/08/17 at 13:00 [place] NP Oct 09, 2017 16:28
--- NOTE | 2017-10-11 21:55 | DS ---
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 The patient recently had a in the family and went to [facility] and was sick there. Denies any dysuria, hematuria, but she was not feeling good and came back and went to [facility]. Since patient is in this hospital, patient was transferred here. The patient's baseline creatinine running in the range of 3. The patient had ultrasound done here shows right iliac fossa transplant kidney 8.2 x 4.7 x 6.8 cm. The patient has a chest x-ray also ordered that shows no active cardiopulmonary disease. The patient is being admitted for further management complaining of abdominal pain, denies any diarrhea, hematemesis, melena. Complaining of weakness, nausea, tiredness. PAST MEDICAL HISTORY: Positive for kidney transplant more than 20 years ago. The patient has a history of hypertension. The patient has history of anemia. ALLERGY HISTORY: VANCOMYCIN. SOCIAL HISTORY: Negative. FAMILY HISTORY: Noncontributory. MEDICATION HISTORY: The patient is on at home: 1. Tylenol 2. Calcitriol. 3. Vitamin D3. 4. Nifedipine. 5. Prednisone. 6. Prograf. Dx: 1. chronic kidney disease.Transplanted kidney on the right . 2. Metabolic acidosis. 3. Anemia. 4. Hypertension. 5. Hyperglycemia. 6. S/p EGD 7. gastroparesis 8. SIRS better There were endoscopy performed by dr Buckner where he found Gastroparesis and Gastritis. Pt reported les abdominal pain, tolerating soft diet and was discharged home. Home Meds Active Scripts Pantoprazole* (Protonix*) 40 Mg Tablet., 40 MG PO DAILY for 30 Days, TAB Prov:KIMI MORALES 10/09/17 Metoclopramide* (Reglan*) 5 Mg Tablet, 5 MG PO AC MEALS for 10 Days, TAB Prov:KIMI MORALES 10/09/17 Metoprolol Tartrate* (Lopressor*) 100 Mg Tablet, 100 MG PO BID@08,2230 for 30 Days, TAB Prov:KIMI MORALES 10/09/17 Levothyroxine Sodium* (Synthroid*) 137 Mcg Tablet, 137 MCG PO DAILY@07 for 30 Days, TAB Prov:KIMI MORALES 10/09/17 Reported Medications Tacrolimus* (Tacrolimus*) 5 Mg Capsule, 7 MG PO DAILY, CAP 10/07/17 Prednisone* (Prednisone*) 5 Mg Tab, 5 MG PO DAILY, TAB 10/07/17 Nifedipine* (Nifedipine ER*) 60 Mg Tablet.sa, 60 MG PO DAILY, TAB.SA 10/07/17 Cholecalciferol* (Vitamin D3*) 1,000 Unit Tablet, 1000 UNIT PO DAILY, TAB 10/07/17 Calcitriol* (Calcitriol*) 0.5 Mcg Capsule, 0.5 MCG PO BID, CAP 10/07/17 Acetaminophen* (Tylenol*) 325 Mg Tablet, 650 MG PO Q4H Y for MILD PAIN LEVEL 1-3 , TAB 10/07/17 Follow-up Plan PCP 1 week Primary Care Provider Brian Moreno MD Time spent on discharge: < 30 minutes KIMI MORALES Oct 11, 2017 21:55
== END 2017-10-09 18:20 | disposition home or self-care (01) | DRG 392 ==
LOC: PP2 10-07 00:47
PROVIDERS: ADMIT Internal Medicine Nephrology; ATTEND Internal Medicine Nephrology
PROC: 0DB68ZX Excision of Stomach, Via Natural or Artificial Opening Endoscopic, Diagnostic (ICD-10-PCS; principal; 2017-10-08 12:30)
DX: K31.84 Gastroparesis (principal); R65.10 Systemic inflammatory response syndrome (SIRS) of non-infectious origin without acute organ dysfunction; Z94.0 Kidney transplant status; I16.0 Hypertensive urgency; D64.9 Anemia, unspecified; K29.70 Gastritis, unspecified, without bleeding; I12.9 Hypertensive chronic kidney disease with stage 1 through stage 4 chronic kidney disease, or unspecified chronic kidney disease; N18.9 Chronic kidney disease, unspecified
CPT/HCPCS: 71020; 76700; 76775; 80048; 80053; 80197; 81003; 82570; 83036; 83970; 84100; 84155; 84300; 84703; 85025; 88305; 88312; 90686; C9113; J1170; J2270; J2765; J7030; J7507; J7512